=== PATIENT | male | born 1995 ===

== ENCOUNTER 2018-04-29 14:45 | Emergency (ER) | payer SELFPAY ==
[2018-04-29 15:19] VITALS: BP 124/63
--- NOTE | 2018-04-29 16:31 | UC ---
Respiratory Complaint HPI - HPI Summary HPI Summary: C/O 5 days feeling like he can't take a deep breath. No fever, cough. No h/o asthma. - History of Current Complaint Chief Complaint: UCRespiratory Stated Complaint: ASTHMA SYMPTOMS Time Seen by Provider: 04/29/18 16:14 Hx Obtained From: Patient Onset/Duration: Sudden Onset, Lasting Days - 5, Still Present Timing: Constant Severity Initially: Mild Severity Currently: Mild Pain Intensity: 0 Aggravating Factors: Deep Breaths - Doesn't feel like he can take a deep breath Alleviating Factors: Nothing Associated Signs And Symptoms: Positive: Nasal Congestion. Negative: Fever, Chills, Pleuritic Chest Pain, Wheezing, URI, Sinus Discomfort Related History: Seasonal Allergies - Maybe with some congestion - Allergies/Home Medications Allergies/Adverse Reactions: Allergies Allergy/AdvReac Type Severity Reaction Status Date / Time No Known Allergies Allergy Verified 04/29/18 15:04 PMH/Surg Hx/FS Hx/Imm Hx Previously Healthy: Yes - Surgical History Surgical History: None - Family History Known Family History: Negative: Respiratory Disease - Social History Occupation: Employed Full-time Lives: With Family Alcohol Use: None Substance Use Type: None Smoking Status (MU): Never Smoked Tobacco Review of Systems Respiratory: Shortness Of Breath - Not unable to catch breath, unable to take a deep breath Is Patient Immunocompromised?: No All Other Systems Reviewed And Are Negative: Yes Physical Exam Triage Information Reviewed: Yes Appearance: Well-Appearing, No Pain Distress, Well-Nourished Vital Signs: Initial Vital Signs Temp 98.7 F 04/29/18 15:05 Pulse 79 04/29/18 15:05 Resp 22 04/29/18 15:05 BP 124/63 04/29/18 15:05 Pulse Ox 100 04/29/18 15:05 Vital Signs Reviewed: Yes Eyes: Positive: Conjunctiva Clear ENT: Positive: Pharynx normal, Nasal congestion - with allergic changes, TMs normal Dental Exam: Normal Neck exam: Normal Respiratory Exam: Normal Respiratory: Positive: Wheezing - ? wheeze with coughing Cardiovascular Exam: Normal Musculoskeletal Exam: Normal Neurological Exam: Normal Psychological Exam: Normal Skin Exam: Normal UC Diagnostic Evaluation - Laboratory O2 Sat by Pulse Oximetry: 100 Re-Evaluation - Re-Evaluation First Eval Re-Evaluation Time: 17:16 Change: Improved - breathing is slightly easier after the albuterol nebulizer. Respiratory Course/Dx - Differential Dx/Diagnosis Differential Diagnosis/HQI/PQRI: Asthma, Laryngitis, Lower Resp Infection Provider Diagnoses: Mild persistent asthma. Discharge - Sign-Out/Discharge Documenting (check all that apply): Discharge/Admit/Transfer - Discharge Plan Condition: Stable Disposition: HOME Prescriptions: Montelukast Sodium TAB* [Singulair 10 MG TAB*] 10 mg PO BEDTIME #30 tab Patient Education Materials: Asthma (ED), Montelukast (By mouth) Forms: *Work Release Referrals: No Primary Care Phys,NOPCP [Primary Care Provider] - - Billing Disposition and Condition Condition: STABLE Disposition: Home
[2018-04-29] MEDS ORDERED: Albuterol 2.5 MG/3 ML NEB.SOL* (0.083%) INH ONE (16:41)
--- NOTE | 2018-04-29 16:58 | RAD ---
INDICATION: Short of breath COMPARISON: None TECHNIQUE: PA and lateral dual-energy views were obtained. FINDINGS: Bones/Soft Tissues: There are no acute bony findings. Cardiomediastinal: The cardiomediastinal silhouette is normal. Lungs: There are no infiltrates. Pleura: There are no pleural effusions. Other: None IMPRESSION: NORMAL CHEST
== END 2018-04-29 17:46 | disposition home or self-care (01) ==
LOC: UCCORT 14:45
DX: J45.909 Unspecified asthma, uncomplicated (principal)
CPT/HCPCS: 71046; 99202; G0463

== ENCOUNTER 2019-06-04 21:11 | Emergency (ER) | payer SELFPAY ==
[2019-06-04 21:25] VITALS: BP 125/63
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
--- NOTE | 2019-06-05 10:41 | UC ---
- Progress Note Progress Note: Xray clavicle frx - this is c/w Dr rBowne's evaluation. f/u plan approrpiate. Course/Dx - Diagnoses Provider Diagnoses: Closed left clavicular fracture Discharge - Sign-Out/Discharge Documenting (check all that apply): Post-Discharge Follow Up All imaging exams completed and their final reports reviewed: Yes - Discharge Plan Condition: Stable Disposition: HOME Patient Education Materials: Clavicle Fracture (ED) Print Language: ROMANSH Referrals: Aubrey Goff MD [Medical Doctor] - 3 Days No Primary Care Phys,NOPCP [Primary Care Provider] - Additional Instructions: Ice area, avoid laying on left shoulder. Take ibuprofen 600mg up to three times/ day as needed for pain. Follow-up with Orthopedist. - Billing Disposition and Condition Condition: STABLE Disposition: Home
== END 2019-06-04 21:56 | disposition home or self-care (01) ==
LOC: UCCORT 21:11
DX: S42.025A Nondisplaced fracture of shaft of left clavicle, initial encounter for closed fracture (principal); V19.3XXA Pedal cyclist (driver) (passenger) injured in unspecified nontraffic accident, initial encounter; Y93.55 Activity, bike riding; Y92.9 Unspecified place or not applicable
CPT/HCPCS: 99211; G0463